=== PATIENT | male | born 1985 | race Two or more races ===

== ENCOUNTER 2024-01-31 10:37 | Outpatient (AMB) | payer OTHER, SELFPAY ==
--- NOTE | 2024-01-31 10:47 | MHC.PC.OV ---
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 Crane Service Technician Required: No Accompanied by: Spouse Allergies No Known Allergies [No Known Allergies*] Allergy (Verified 01/31/24 11:08) Medication List - Last Reconciled 01/31/24 by Bailey Singh MD buspirone 30 mg PO ONCE buspirone 10 mg PO DAILY dextroamphetamine-amphetamine 30 mg (Adderall) 30 mg PO DAILY escitalopram oxalate 10 mg PO DAILY 1 month loratadine 10 mg PO DAILY 1 month oxycodone 5 mg PO Q8H PRN 7 days sumatriptan succinate (Imitrex) take 1 tab at onset of headache; if no relief may repeat 1 tab after at least 2 hrs; max = 4 tabs/24 hr PO Ventolin HFA 90 mcg/actuation (albuterol sulfate) 2 puffs PO Q4-6H PRN NS Tobacco use date assessed: 01/31/24 Dental Screening Dental Screen Date: 01/31/24 Did you have a dental visit in the last 12 months?: Yes Did you have a dental problem in the last 6 months where you did not have access to dental care?: No Was dental information given to patient?: Patient has dentist HPI HPI Comments History of Present Illness Details 38 year old male with a past medical history of MDD, migraines, ADHD, asthma, hypertension, hyperlipidemia, kidney stones presenting to establish care. Transferring from Dr King : ADD, anxiety, MDD. Sees a therapist. Stable Recent ER visit at [facility] for left flank pain. Had had some hematuria as well. [place] better after dilaudid and discharged home. Continues to have intermittent sharp pains in the left flank. Denies gross hematuria. Denies fevers. No dysuria. Migraines-not responsive to OTC meds. Has used imitrex in the past with good relief Notes right hearing loss over the past couple years ROS see HPI PHYSICAL EXAM: GENERAL: Alert and oriented x 3. NAD EYES: EOMI. Anicteric. HENT: Moist mucous membranes. No scleral icterus. No cervical lymphadenopathy. LUNGS: Clear to auscultation bilaterally. CARDIOVASCULAR: Regular rate and rhythm. No murmur. No JVD. ABDOMEN: Soft, +left CVA tenderness otherwise no pain to palpation, +bs EXTREMITIES: No edema. Non-tender. SKIN: No rashes or lesions. Warm. NEUROLOGIC: No focal neurological deficits. CN II-XII grossly intact PSYCHIATRIC: Cooperative. Appropriate mood and affect [facility] Medical History (Updated 01/31/24 @ 11:38 by Bailey Singh MD) Asthma High cholesterol Depression Anxiety Imbalance Migraine Migraine aura, persistent ADHD Surgical History No pertinent past surgical history Family History Father Diabetes High cholesterol Mother Ovarian cancer Diabetes Brother Asthma High cholesterol Other In good health Social History Household Members: Significant Other Household Members Other:: 2 cats Housing: Apartment Alcohol intake: current Alcohol intake frequency: holidays/special occasions only Patient Tobacco Use Status: Current everyday Tobacco user Tobacco use type: Cigarette Cigarettes Per Day: 3 (interested in quitting ) e-Cigarette/Vaping Use: Never Used Substance Use Type: Marijuana service: No Current occupational status: employed 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 Cognitive needs: No Hearing needs: Yes (concern with right ear) Vision needs: No Questionnaire PHQ-9 Over the last 2 weeks, how often have you been bothered by any of the following problems? 1. Little interest or pleasure in doing things: several days 2. Feeling down, depressed, or hopeless: nearly every day 3. Trouble falling or staying asleep, or sleeping too much: nearly every day 4. Feeling tired or having little energy: nearly every day 5. Poor appetite or overeating: more than half the days 6. Feeling bad about yourself - or that you are a failure or have let yourself or your family down: nearly every day 7. Trouble concentrating on things, such as reading the newspaper or watching television: nearly every day 8. Moving or speaking so slowly that other people could have noticed. Or the opposite - being so fidgety or restless that you have been moving around a lot more than usual: more than half the days 9. Thoughts that you would be better off or of hurting yourself in some way: several days Total score: 21 Depression Screening Interpretation: Positive Depression Screening Follow-up: Existing condition, In treatment and Community Mental Health Worker F/U Depression Screening Done: Yes 82081 - PHQ-9 Billing: Yes Source: Developed by Drs. Rainer Brennan, Angela Oreilly, Imer Webber and colleagues, with an educational liliane from [employer]. Thrive Questionnaire Date Thrive assessed: 01/31/24 I am a: Patient What is your living situation today?: I have a steady place to live Within the past 12 months, did the food you bought not last and you didn't have the money to get more?: Sometimes True Within the past 12 months, did you worry whether your food would run out before you got money to buy more?: Sometimes True Do you have trouble paying for medicines?: No Do you have trouble getting transportation to medical appointments?: No Do you have trouble paying your heating and electricity bill?: Yes Do you have trouble taking care of your child, family member or friend?: No Do you have trouble with day-to-day activities such as bathing, preparing meals, shopping, managing finances, etc.?: Yes Are you currently unemployed and looking for a job?: No Are you interested in more education?: Yes Please select the resources that you would like help with: Utilities Currently or been in a relationship where the following occur: No concerns reported THRIVE Score: 3 AUDIT C Alcohol Use Questionnaire (AUDIT-C) 1. How often do you have a drink containing alcohol?: Never 3. How often do you have six or more drinks on one occasion?: Never Total Score: 0 DONAVON-7 AMB Questionnaire DONAVON-7 Date DONAVON - 7 assessed: 01/31/24 Feeling nervous, anxious, or on edge: 3 = Nearly every day Not being able to stop or control worryin = Nearly every day Worrying too much about different things: 3 = Nearly every day Trouble relaxin = Nearly every day Being so restless that it is hard to sit still: 3 = Nearly every day Becoming easily annoyed or irritable: 3 = Nearly every day Feeling afraid as if something awful might happen: 2 = More than half the days Total DONAVON-7 score (0-4 normal; 5-9 mild; 10-14 moderate; 15-21 severe): 20 Source: Developed by Drs. Rainer Brennan, Angela Oreilly, Imer Webber and colleagues, with an educational liliane from [employer]. DONAVON-7 Assessment Billing DONAVON-7 Assessment Tool: DONAVON-7 Assessment 29110 Physical exam (Primary Care) Vital Signs: Last Vital Signs Pulse 84 01/31/24 10:55 BP 132/66 01/31/24 10:55 Pulse Ox 99 01/31/24 10:55 Oxygen Delivery Method Room Air 01/31/24 10:55 BMI result Body Mass Index 44.2 Tobacco/Smoking Status: Tobacco use Status Patient Tobacco Use Status Current everyday Tobacco 01/31/24 11:10 Tobacco use type Cigarette 01/31/24 11:10 e-Cigarette/Vaping Use Never Used 01/31/24 11:10 Depression Screening Interpretation: Positive Depression Screening Follow-up: Existing condition, In treatment and Community Mental Health Worker F/U Currently or been in a relationship where the following occur: No concerns reported Assessment and Plan Assessment & Plan (1) History of kidney stones: Code(s): Z87.442 - Personal history of urinary calculi Plan: urology referral placed (2) Left flank pain: Code(s): R10.9 - Unspecified abdominal pain Plan: Renal u/s ordered oxycodone refilled (3) Depression: Code(s): F32.A - Depression, unspecified Qualifiers: Depression Type: major depressive disorder Major depression recurrence: recurrent Active/Remission status: in partial remission Qualified Code(s): F33.41 - Major depressive disorder, recurrent, in partial remission (4) Migraine: Code(s): G43.909 - Migraine, unspecified, not intractable, without status migrainosus Qualifiers: Migraine type: migraine (< 15 days per month) with aura Status migrainosus presence: without status migrainosus Intractability: not intractable Qualified Code(s): G43.109 - Migraine with aura, not intractable, without status migrainosus (5) Encounter to establish care: Code(s): Z76.89 - Persons encountering health services in other specified circumstances Plan: 38 y/o to establish care. Past medical, surgical, social and family history reviewed. chart updated. Orders: Orders US renal BI Today R10.9 - Unspecified abdominal pain, Z87.442 - Personal history of urinary calculi Complete Blood Count Auto Diff Today R10.9 - Unspecified abdominal pain, Z87.442 - Personal history of urinary calculi UA CC w/rflx Micro + Cult Today R10.9 - Unspecified abdominal pain Comprehensive Met. Panel Today R10.9 - Unspecified abdominal pain, Z87.442 - Personal history of urinary calculi Referrals Urology Referral R10.9 - Unspecified abdominal pain, Z87.442 - Personal history of urinary calculi Audiology Referral H91.90 - Unspecified hearing loss, unspecified ear Medications: New oxycodone Partial Fill upon patient request. 5 mg PO Q8H 7 days PRN 21 tabs 0RF pain sumatriptan succinate (Imitrex) take 1 tab at onset of headache; if no relief may repeat 1 tab after at least 2 hrs; max = 4 tabs/24 hr PO 30 tabs 0RF Coding Level of Care Code Est Pt Level 5 (89263) Diagnoses History of kidney stones Z87.442 Left flank pain R10.9 Recurrent major depressive disorder, in partial remission F33.41 Depression Type: major depressive disorder Major depression recurrence: recurrent Active/Remission status: in partial remission Migraine with aura and without status migrainosus, not intractable G43.109 Migraine type: migraine (< 15 days per month) with aura Status migrainosus presence: without status migrainosus Intractability: not intractable Encounter to establish care Z76.89 Additional Codes DONAVON-7 Assessment Billing - DONAVON-7 Assessment Tool: DONAVON-7 Assessment 70411 ([id number])
[2024-01-31 10:55] VITALS: BP 132/66; PULSE 84; O2SAT 99; BMI 44.2
== END 2024-01-31 11:30 | disposition home or self-care (01) ==
PROVIDERS: PCP Internal Medicine; Visit Provider Internal Medicine
DX: R10.9 Unspecified abdominal pain (principal); F33.41 Major depressive disorder, recurrent, in partial remission; G43.109 Migraine with aura, not intractable, without status migrainosus; Z87.442 Personal history of urinary calculi
CPT/HCPCS: 99214

== ENCOUNTER 2024-01-31 11:40 | Outpatient (REF) | payer OTHER, SELFPAY ==
[2024-01-31 14:28] LABS: MANUAL DIFF FLAG NO
[2024-01-31 14:37] LABS: Basophils Absolute Auto 0.1 X10*3/uL (0.0-0.2); Eosinophils Absolute Auto 0.6 X10*3/uL (0.0-0.4); Eosinophils Percent Auto 6.1 % (0-4); Hematocrit 43.3 % (42.0-52.0); Hemoglobin 14.8 g/dl (14.0-18.0); Imm Gran Abs Auto 0.05 X10*3/uL (0.00-0.03); Imm Gran Pct Auto 0.5 % (0.0-0.4); Lymphocytes Absolute Auto 3.2 X10*3/uL (1.2-4.9); Lymphocytes Percent Auto 32.4 % (20-40); Mean Corpuscular HGB Conc 34.2 g/dl (31.0-36.0); Mean Corpuscular Volume 84.9 fL (80.0-98.0); Mean Platelet Volume 10.5 fL (9.4-12.4); Monocytes Absolute Auto 0.8 X10*3/uL (0.1-1.2); Monocytes Percent Auto 7.8 % (2-11); Neutrophils Absolute Auto 5.1 x10*3/uL (2.0-8.3); Neutrophils Percent Auto 52.2 % (45-73); Platelet Count 303 X10*3/uL (160-400); Red Cell Distribution Width 12.7 % (11.0-16.0); White Blood Count 9.8 X10*3/uL (4.8-10.8)
[2024-01-31 14:40] LABS: Appearance Urine Clear; Color Urine Yellow; Glucose Urine UA Negative (Negative); Leukocyte Esterase Urine Negative (Negative); Nitrite Urine Negative (Negative); PH 5.5 (5.0-9.0); Urine Blood Negative (Negative); Urine Ketones Negative (Negative); Urine Protein Negative (Neg-Trace)
[2024-01-31 15:01] LABS: Alanine Aminotransferase 33 U/L (0-40); Albumin Level 4.1 g/dL (3.5-5.0); Alkaline Phosphatase 89 U/L (39-117); Anion Gap 11 (12-20); Aspartate Amino Transferase 20 U/L (5-37); Bilirubin Total 0.2 mg/dL (0.0-1.0); Blood Urea Nitrogen 10 mg/dL (9-16); Calcium 9.5 mg/dL (8.4-10.2); Carbon Dioxide 24 mmol/L (22-29); Chloride 109 mmol/L (96-108); Estimated Glomerular Filt Rate > 60; Glucose Random 101 mg/dL (60-115); Potassium 4.1 mmol/L (3.3-5.1); Sodium 140 mmol/L (135-145); Total Protein 7.3 g/dL (6.5-8.0)
== END 2024-01-31 11:41 | disposition home or self-care (01) ==
LOC: HO.WFDLDS 11:40
PROVIDERS: Visit Provider Internal Medicine
DX: R10.9 Unspecified abdominal pain (principal); Z87.442 Personal history of urinary calculi
CPT/HCPCS: 36415; 80053; 81003; 85025

== ENCOUNTER 2024-02-04 10:27 | Outpatient (REF) | payer OTHER, SELFPAY ==
--- NOTE | ~2024-02-04 | US_ITS ---
EXAMINATION: US RETROPERITONEAL LIMITED (RENAL ONLY) CLINICAL INFORMATION: Personal history of urinary calculi. COMPARISON: None available. TECHNIQUE: Ultrasound along with color Doppler imaging and spectral analysis was performed of the kidneys. FINDINGS: RIGHT KIDNEY: 13.1 x 4.7 x 6.2 cm (SAG x AP x TRV). The kidney is normal in size, contour, and echogenicity. Renal cortical thickness is normal. No calculi or focal parenchymal lesions. No hydronephrosis. LEFT KIDNEY: 11.2 x 5.5 x 6.0 cm (SAG x AP x TRV). The kidney is normal in size, contour, and echogenicity. Renal cortical thickness is normal. No calculi or focal parenchymal lesions. No hydronephrosis. US/US renal BI IMPRESSION: Unremarkable exam. Specifically, no evidence of nephrolithiasis.
== END 2024-02-04 10:28 | disposition home or self-care (01) ==
LOC: HO.US 10:27
PROVIDERS: PCP Internal Medicine; Visit Provider Internal Medicine
DX: R10.9 Unspecified abdominal pain (principal); Z87.442 Personal history of urinary calculi
CPT/HCPCS: 76775

== ENCOUNTER 2024-03-14 08:12 | Outpatient (AMB) | payer OTHER, SELFPAY ==
--- NOTE | 2024-03-14 08:21 | MHC.PC.OV ---
Vital Signs 03/14/24 08:22 Height 5 ft 10 in BMI Reason not done Patient refused/unable BP 148/84 H Blood Pressure Location Rt brachial Position Sitting Respiration 13 Pulse 78 Pulse Source Pulse Oximeter Pulse Oximetry (%) 99 Oxygen Delivery Method Room Air Intake Visit Reasons: physical exam Intake Note: Patient is here for a physical and has concern for left sided pain, described as sharp pain. Patient reports hes had an ultrasound of the kidneys. In Service Educator Required: No Accompanied by: Self / Same As Patient Allergies No Known Allergies [No Known Allergies*] Allergy (Verified 03/14/24 08:28) Tobacco use date assessed: 01/31/24 Dental Screening Dental Screen Date: 01/31/24 HPI HPI Comments History of Present Illness Details 38 year old male with a past medical history of MDD, migraines, ADHD, asthma, hypertension, hyperlipidemia, kidney stones presenting for physical exam BH: ADD, anxiety, MDD. Sees a therapist. Stable At ER at [facility] for left flank pain a few months ago. Had had some hematuria as well. [place] better after dilaudid and discharged home. Continues to have intermittent sharp pains in the left flank. Denies gross hematuria. Denies fevers. No dysuria. Left lower back pain for the past 2 months. 7-10/10 pain. Worsens with standing up straight, laying down, twisting in bed. Difficult to get dressed, difficult lifting, bending at work. Sometimes radiates in the left lower quadrant and left testicle. oxycodone helping but only for a few hours. Migraines-on prn imitrex Notes right hearing loss over the past couple years -was referred to audiology ROS see HPI PHYSICAL EXAM: GENERAL: Alert and oriented x 3. NAD EYES: EOMI. Anicteric. HENT: Moist mucous membranes. No scleral icterus. No cervical lymphadenopathy. LUNGS: Clear to auscultation bilaterally. CARDIOVASCULAR: Regular rate and rhythm. No murmur. No JVD. ABDOMEN: Soft, left thoracolumbar paraspinal spasm : normal penis and testicles, no masses or hernias appreciated EXTREMITIES: No edema. Non-tender. SKIN: No rashes or lesions. Warm. NEUROLOGIC: No focal neurological deficits. CN II-XII grossly intact PSYCHIATRIC: Cooperative. Appropriate mood and affect [facility] Medical History (Updated 03/14/24 @ 09:51 by Bailey Singh MD) Asthma High cholesterol Depression Anxiety Imbalance Migraine Migraine aura, persistent ADHD Surgical History No pertinent past surgical history Family History Father Diabetes High cholesterol Mother Ovarian cancer Diabetes Brother Asthma High cholesterol Other In good health Social History Household Members: Significant Other Household Members Other:: 2 cats Housing: Apartment Alcohol intake: current Alcohol intake frequency: holidays/special occasions only Patient Tobacco Use Status: Current everyday Tobacco user Tobacco use type: Cigarette Cigarettes Per Day: 3 (interested in quitting ) e-Cigarette/Vaping Use: Never Used Substance Use Type: Marijuana service: No Current occupational status: employed 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 Cognitive needs: No Hearing needs: Yes (concern with right ear) Vision needs: No Questionnaire Thrive Questionnaire Date Thrive assessed: 01/31/24 DONAVON-7 AMB Questionnaire DONAVON-7 Date DONAVON - 7 assessed: 01/31/24 Source: Developed by Drs. Rainer Brennan, Angela Oreilly, Imer Webber and colleagues, with an educational liliane from [employer]. Physical exam (Primary Care) Vital Signs: Last Vital Signs Pulse 78 03/14/24 08:22 Resp 13 03/14/24 08:22 BP 148/84 H 03/14/24 08:22 Pulse Ox 99 03/14/24 08:22 Oxygen Delivery Method Room Air 03/14/24 08:22 Tobacco/Smoking Status: Tobacco use Status Tobacco use date assessed 01/31/24 03/14/24 08:32 Patient Tobacco Use Status Current everyday Tobacco 03/14/24 08:32 Tobacco use type Cigarette 03/14/24 08:32 e-Cigarette/Vaping Use Never Used 03/14/24 08:32 Thrive Assessment: Date of Thrive Assessment Date Thrive assessed 01/31/24 03/14/24 08:32 Assessment and Plan Assessment & Plan (1) Physical exam: Code(s): Z00.00 - Encounter for general adult medical examination without abnormal findings Plan: Preventive measures discussed (2) Thoracic and lumbosacral neuritis: Code(s): M54.14 - Radiculopathy, thoracic region; M54.17 - Radiculopathy, lumbosacral region Plan: xray, pt, continue meds. MRI ordered (3) Thoracolumbar back pain: Code(s): M54.50 - Low back pain, unspecified; M54.6 - Pain in thoracic spine (4) Obesity due to excess calories: Code(s): E66.09 - Other obesity due to excess calories Orders: Orders XR lumbar spine 2-3V Today M54.14 - Radiculopathy, thoracic region, M54.17 - Radiculopathy, lumbosacral region, M54.50 - Low back pain, unspecified, M54.6 - Pain in thoracic spine XR thoracic spine 2V Today M54.14 - Radiculopathy, thoracic region, M54.17 - Radiculopathy, lumbosacral region, M54.50 - Low back pain, unspecified, M54.6 - Pain in thoracic spine PT Evaluation and Treatment Today M54.14 - Radiculopathy, thoracic region, M54.17 - Radiculopathy, lumbosacral region, M54.50 - Low back pain, unspecified, M54.6 - Pain in thoracic spine MR lumbar spine wo con Today M54.14 - Radiculopathy, thoracic region, M54.17 - Radiculopathy, lumbosacral region, M54.50 - Low back pain, unspecified, M54.6 - Pain in thoracic spine Medications: New semaglutide (weight loss) (Wegovy) administer weeks 1 through 4 of therapy 0.25 mg (0.5 mL) subcut QWEEK 2 mL 0RF Changed From oxycodone Partial Fill upon patient request. 5 mg PO Q8H 7 days PRN 21 tabs 0RF pain To oxycodone Partial Fill upon patient request. 5 mg PO Q8H 28 days PRN 84 tabs 0RF pain Coding Level of Care Code Est Pt Prev Care 18-39y(53069) Diagnoses Physical exam Z00.00 Thoracic and lumbosacral neuritis M54.14; M54.17 Thoracolumbar back pain M54.50; M54.6 Obesity due to excess calories E66.09
[2024-03-14 08:22] VITALS: BP 148/84; PULSE 78; RESP 13; O2SAT 99
== END 2024-03-14 09:14 | disposition home or self-care (01) ==
PROVIDERS: PCP Internal Medicine; Visit Provider Internal Medicine
DX: Z00.00 Encounter for general adult medical examination without abnormal findings (principal); M54.14 Radiculopathy, thoracic region; M54.17 Radiculopathy, lumbosacral region; M54.50 Low back pain, unspecified; M54.6 Pain in thoracic spine; E66.09 Other obesity due to excess calories
CPT/HCPCS: 99395

== ENCOUNTER 2024-03-24 08:49 | Outpatient (AMB) | payer OTHER, SELFPAY ==
--- NOTE | 2024-03-24 08:59 | A.OFFVIS_ITS ---
Intake Visit Reasons: history of kidney stones Intake Note: New Patient presents for initial visit for history of kidney stones Urology Medications: none Blood Thinner: none Teletype Clerk Required: No Accompanied by: Self / Same As Patient Allergies No Known Allergies [No Known Allergies*] Allergy (Verified 03/24/24 09:36) Medication List - Last Reconciled 03/24/24 by Marlin Diego, POST FORM REMOVER- bupropion HCl XL 150 mg PO QAM bupropion HCl XL 300 mg PO DAILY dextroamphetamine-amphetamine 30 mg (Adderall) 30 mg PO DAILY lorazepam 1 mg PO DAILY PRN oxycodone 5 mg PO Q8H PRN 28 days semaglutide (weight loss) (Wegovy) 0.25 mg (0.5 mL) subcut QWEEK sumatriptan succinate (Imitrex) take 1 tab at onset of headache; if no relief may repeat 1 tab after at least 2 hrs; max = 4 tabs/24 hr PO Ventolin HFA 90 mcg/actuation (albuterol sulfate) 2 puffs PO Q4-6H PRN NS HPI Comments Details: Zachery is a pleasant 39 year old male patient of Dr. Angel Whitley who was accompanied by his significant other at today's office visit. He has a past medical history of asthma, hypercholesteremia, depression, anxiety, migraines, and ADHD. He presents to the office today as a new patient for possible nephrolithiasis. In discussion with the patient today he reports having symptoms of nephrolithiasis such as left-sided flank pain with episode of hematuria that have since subsided. He reports having an episode 12 years ago and being told that he likely passed a stone as imaging noted ureter passed kidney stone. Recent renal imaging results reviewed with the patient today. Bilateral kidneys with no calculi, lesions, and or hydronephrosis. Unremarkable renal ultrasound. Patient reports pain he had been experiencing has since subsided however he continues with low-back pain. We discussed at length potential causes of nephrolithiasis. In office urinalysis results reviewed with the patient today. He denies urinary urgency, urinary frequency, incontinence, nocturia, hematuria, dysuria, foul smelling urine, changes to urinary stream, flank pain, fever, and or chills. He is happy with his current voiding parameters. [facility] Medical History Asthma High cholesterol Depression Anxiety Imbalance Migraine Migraine aura, persistent ADHD Surgical History No pertinent past surgical history Family History Father Diabetes High cholesterol Mother Ovarian cancer Diabetes Brother Asthma High cholesterol Other In good health Social History Household Members: Significant Other Household Members Other:: 2 cats Housing: Apartment Alcohol intake: current Alcohol intake frequency: holidays/special occasions only Patient Tobacco Use Status: Current everyday Tobacco user Tobacco use type: Cigarette Cigarettes Per Day: 3 (interested in quitting ) e-Cigarette/Vaping Use: Never Used Substance Use Type: Marijuana service: No Current occupational status: employed 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 Cognitive needs: No Hearing needs: Yes (concern with right ear) Vision needs: No Review of Systems Const All systems reviewed & are unremarkable except as noted in HPI and below Physical Exam Const General: cooperative, healthy appearing, comfortable, no acute distress, well developed, alert and awake Nutritional Appearance: overweight Orientation/consciousness: patient oriented x3 Limitations: no limitations HEENT Head: Yes normal to inspection, Yes normocephalic and Yes atraumatic Ears: hearing grossly normal bilaterally Eyes General: appearance normal, both eyes and all related structures Neck Neck: Yes normal visual inspection and Yes trachea midline Chest Chest palpation & inspection: normal inspection of the chest Resp Effort & Inspection: normal respiratory effort and able to speak in complete sentences Cardio Rate: regular rate GI Inspection: Yes normal to inspection General: Yes no CVA tenderness Back/Spine/Pelvis Back: no CVA tenderness Skin General skin exam: no rashes or lesions noted Neuro General: patient oriented x3 Extrem General: Yes normal to inspection Psych Appearance: grossly normal and well kempt Mental Status: mental status grossly normal Speech and movement: Normal speech and movement present and Clear speech present Affect: normal affect Attitude: cooperative Thought process: Normal thought process present Thought content: Normal thought content present Insight: Fair insight present (Psych) Judgement: Fair judgement present (Psych) Results AMB Urinalysis, Automated UA Leukoctes 0 Bree/uL Last Edit by John Bazan on 03/24/24 09:18 UA Nitrite Negative Last Edit by [employer] Des[employer]ison Bazan on 03/24/24 09:18 UA Urobilinogen 0.2 mg/dL Last Edit by [employer] Bazan on 03/24/24 09:18 UA Protein 15 mg/dL Last Edit by John Bazan on 03/24/24 09:18 UA pH 6.0 Last Edit by [employer] Bazan on 03/24/24 09:18 UA Blood 0 Sandip/uL Last Edit by A vida é feita de Descontoalison Bazan on 03/24/24 09:18 UA Specific [place] 1.025 Last Edit by [employer] on 03/24/24 09:18 UA Ketone Negative Last Edit by A vida [employer] feita [employer] Descontoalison Bazan on 03/24/24 09:18 UA Bilirubin 0 mg/dL Last Edit by [employer] Bazan on 03/24/24 09:18 UA Glucose 0 mg/dL Last Edit by [employer] fe[employer] Descon[employer]ison Bazan on 03/24/24 09:18 Results Reviewed Results Reviewed: Laboratory Last Values Urine pH (Auto) 6.0 03/24/24 09:01 Specific [place] (Auto) 1.025 03/24/24 09:01 Urine Protein (Auto) 15 mg/dL 03/24/24 09:01 Glucose (UA)(Auto) 0 mg/dL 03/24/24 09:01 Urine Ketones (Auto) Negative 03/24/24 09:01 Urine Blood (Auto) 0 Sandip/uL 03/24/24 09:01 Urine Nitrite (Auto) Negative 03/24/24 09:01 Urine Bilirubin (Auto) 0 mg/dL 03/24/24 09:01 Urine Urobilinogen (Auto) 0.2 mg/dL 03/24/24 09:01 Leukocyte Esterase (Auto) 0 Bree/uL 03/24/24 09:01 Date of Service: 02/04/24 EXAMINATION: US RETROPERITONEAL LIMITED (RENAL ONLY) FINDINGS: RIGHT KIDNEY: 13.1 x 4.7 x 6.2 cm (SAG x AP x TRV). The kidney is normal in size, contour, and echogenicity. Renal cortical thickness is normal. No calculi or focal parenchymal lesions. No hydronephrosis. LEFT KIDNEY: 11.2 x 5.5 x 6.0 cm (SAG x AP x TRV). The kidney is normal in size, contour, and echogenicity. Renal cortical thickness is normal. No calculi or focal parenchymal lesions. No hydronephrosis. IMPRESSION: Unremarkable exam. Specifically, no evidence of nephrolithiasis. Assessment & Plan Assessment & Plan (1) Left flank pain: Code(s): R10.9 - Unspecified abdominal pain Category: Medical (2) History of kidney stones: Code(s): Z87.442 - Personal history of urinary calculi Category: Medical (3) Hematuria: Code(s): R31.9 - Hematuria, unspecified Category: Medical Plan In office urinalysis results reviewed with the patient today; as noted above. Recent renal imaging results reviewed with the patient today; as noted above. Discussed at length potential causes of nephrolithiasis. Discussed, educated, and stressed the importance of adequate hydration relation to nephrolithiasis as well as overall health and well-being. Discussed adding 1 oz of lemon juice to water daily. Will obtain renal ultrasound in 3 months. Patient currently denies any bothersome urinary issues or concerns. He reports be happy with current voiding parameters. Follow-up in 3 months with imaging to be completed prior; or sooner with any issues, concerns, and or questions. Orders: Orders AMB Urinalysis Automated Today Z13.9 - Encounter for screening, unspecified US renal BI 3 Months N20.0 - Calculus of kidney Patient Instructions: The patient had an opportunity to ask questions regarding the treatment plan. All questions were answered. Physical exam, labs, and imaging were discussed and reviewed in detail. As well as risks, benefits, and discussion of treatment choices. No major barriers to understanding were identified. The patient expressed understanding and agreement with the above treatment plan. The patient was made aware they should contact our office by phone for worsening of their current condition, the appearance of new symptoms, or with any questions or concerns. Compliance is encouraged with any medications and follow up testing that is ordered. It is a privilege to be allowed the opportunity to participate in? your urological care.? Again, if you have any questions or concerns If you have any questions or concerns please do not hesitate to contact me. The office is [phone]. This note is constructed using voice recognition software. While every effort has been made to ensure accuracy communications intern errors may have been included. Yours sincerely, Marlin Diego, POST FORM REMOVER-BC Coding Level of Care Code New Pt Level 3 (28451) Diagnoses Left flank pain R10.9 History of kidney stones Z87.442 Hematuria R31.9
== END 2024-03-24 09:37 | disposition home or self-care (01) ==
PROVIDERS: PCP Internal Medicine; Visit Provider Nurse Practitioner Family
DX: R10.9 Unspecified abdominal pain (principal); Z87.442 Personal history of urinary calculi; R31.9 Hematuria, unspecified; Z13.9 Encounter for screening, unspecified
CPT/HCPCS: 99203

== ENCOUNTER → 2024-03-24 08:49 | Outpatient (BNVA) | payer OTHER, SELFPAY | PROVIDERS: PCP Internal Medicine; Visit Provider Nurse Practitioner Family | DX: R10.9 Unspecified abdominal pain (principal); M54.50 Low back pain, unspecified; Z87.442 Personal history of urinary calculi | CPT/HCPCS: 81003; 99202 ==

== ENCOUNTER 2024-03-27 07:58 | Outpatient (REF) | payer OTHER, SELFPAY | END 2024-03-27 07:59 | disposition home or self-care (01) | LOC: HO.SH 07:58 | PROVIDERS: Visit Provider Internal Medicine | DX: Z01.118 Encounter for examination of ears and hearing with other abnormal findings (principal); H93.293 Other abnormal auditory perceptions, bilateral | CPT/HCPCS: 92557; 92567 ==

== ENCOUNTER 2024-06-14 08:01 | Outpatient (REF) | payer OTHER, SELFPAY | END 2024-06-14 08:02 | disposition home or self-care (01) | LOC: HO.US 08:01 | PROVIDERS: PCP Internal Medicine; Visit Provider Nurse Practitioner Family | DX: N20.0 Calculus of kidney (principal) | CPT/HCPCS: 76775 ==

== ENCOUNTER → 2024-06-22 16:39 | Outpatient (BNVA) | payer OTHER, SELFPAY | PROVIDERS: PCP Internal Medicine; Visit Provider Nurse Practitioner Family | DX: N20.0 Calculus of kidney (principal) ==

== ENCOUNTER → 2024-06-22 16:39 | Outpatient (AMB) | payer OTHER, SELFPAY ==
--- NOTE | 2024-06-22 16:39 | A.OFFVIS_ITS ---
Intake Visit Reasons: 3m/US(set) Intake Note: Patient presents today for tele visit follow up on : kidney stones and ultrasound results Imaging Completed:06/14/24 Urology Medications: none Blood Thinner: none Power Brake Rebuilder Required: No Accompanied by: Self / Same As Patient Allergies No Known Allergies [No Known Allergies*] Allergy (Verified 06/22/24 21:30) Medication List - Last Reconciled 06/22/24 by RAFAEL Hernandez bupropion HCl XL 150 mg PO QAM bupropion HCl XL 300 mg PO DAILY dextroamphetamine-amphetamine 30 mg (Adderall) 30 mg PO DAILY lorazepam 1 mg PO DAILY PRN naloxone 4 mg/actuation (Narcan) 4 mg intranasal Q3M PRN oxycodone 5 mg PO Q8H PRN 28 days sumatriptan succinate (Imitrex) take 1 tab at onset of headache; if no relief may repeat 1 tab after at least 2 hrs; max = 4 tabs/24 hr PO Ventolin HFA 90 mcg/actuation (albuterol sulfate) 2 puffs PO Q4-6H PRN NS Wegovy (semaglutide (weight loss)) 0.25 mg (0.5 mL) subcut QWEEK 4 weeks NS Wegovy (semaglutide (weight loss)) 0.5 mg (0.5 mL) subcut QWEEK NS HPI Comments Details: Zachery is a pleasant 39 year old male patient of Dr. Angel Whitley. He has a past medical history of asthma, hypercholesteremia, depression, anxiety, migraines, and ADHD. He is being followed up on today via video telehealth for his history of nephrolithiasis. In discussion with the patient today he continues to report episodes of left-sided flank pain that radiates to his abdomen and left testicle. Recent unoffical renal imaging results reviewed with the patient today. Bilateral kidneys with no masses or hydronephrosis. Left kidney with lower pole 6 mm nonobstructing calculus. We discussed findings on renal ultr asound in correlation to patient's symptoms. We discussed stone burden in surveillance monitoring. However, patient continues to report bothersome left- sided flank pain therefore will obtain CT KUB for further assessment evaluation. He discusses his previous history of nephrolithiasis however never requiring surgical intervention. He otherwise denies any bothersome urinary issues. He denies urinary urgency, urinary frequency, incontinence, nocturia, hematuria, dysuria, foul smelling urine, changes to urinary stream, fever, and or chills. He is happy with his current voiding parameters. [facility] Medical History Asthma High cholesterol Depression Anxiety Imbalance Migraine Migraine aura, persistent ADHD Surgical History No pertinent past surgical history Family History Father Diabetes High cholesterol Mother Ovarian cancer Diabetes Brother Asthma High cholesterol Other In good health Social History Household Members: Significant Other Household Members Other:: 2 cats Housing: Apartment Alcohol intake: current Alcohol intake frequency: holidays/special occasions only Patient Tobacco Use Status: Current everyday Tobacco user Tobacco use type: Cigarette Cigarettes Per Day: 3 (interested in quitting ) e-Cigarette/Vaping Use: Never Used Substance Use Type: Marijuana service: No Current occupational status: employed 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 Cognitive needs: No Hearing needs: Yes (concern with right ear) Vision needs: No Review of Systems Const All systems reviewed & are unremarkable except as noted in HPI and below Physical Exam Const General: cooperative, healthy appearing, comfortable, no acute distress, well developed, alert and awake Orientation/consciousness: patient oriented x3 Resp Effort & Inspection: normal respiratory effort and able to speak in complete sentences Neuro General: patient oriented x3 Psych Appearance: grossly normal Mental Status: mental status grossly normal Speech and movement: Normal speech and movement present and Clear speech present Affect: normal affect Attitude: cooperative Thought process: Normal thought process present Thought content: Normal thought content present Insight: Fair insight present (Psych) Judgement: Fair judgement present (Psych) Telehealth Telehealth Telehealth Platform: [facility] Location of provider rendering services: practice address Location of patient: address on file Patient Identification confirmed using: Name, : Yes Telehealth method: video Patient verbally consented to treatment: Yes Patient verbally consented to billing insurance company: Yes Patient informed of any privacy concerns related to visit: Yes Minutes spent on Phone/Video with Pt.: 15 Assessment & Plan Assessment & Plan (1) Nephrolithiasis: Code(s): N20.0 - Calculus of kidney Category: Medical (2) Left flank pain: Code(s): R10.9 - Unspecified abdominal pain Category: Medical Plan Recent renal imaging results reviewed with the patient today; as noted above. We discussed further treatment options to include surveillance monitoring verses further workup. Discussed, educated, and stressed the importance of adequate hydration relation to nephrolithiasis as well as overall health and well-being. Continue adding 1 oz of lemon juice to water daily. Will obtain CT KUB for further assessment evaluation. Follow-up in 1 month with imaging to be completed prior; or sooner with any issues, concerns, and or questions. Orders: Orders CT kidney stone 06/22/24 N20.0 - Calculus of kidney Patient Instructions: The patient had an opportunity to ask questions regarding the treatment plan. All questions were answered. Physical exam, labs, and imaging were discussed and reviewed in detail. As well as risks, benefits, and discussion of treatment ch oices. No major barriers to understanding were identified. The patient expressed understanding and agreement with the above treatment plan. The patient was made aware they should contact our office by phone for worsening of their current condition, the appearance of new symptoms, or with any questions or concerns. Compliance is encouraged with any medications and follow up testing that is ordered. It is a privilege to be allowed the opportunity to participate in? your urological care.? Again, if you have any questions or concerns If you have any questions or concerns please do not hesitate to contact me. The office is [phone]. This note is constructed using voice recognition software. While every effort has been made to ensure accuracy paint crew supervisor errors may have been included. Yours sincerely, RAFAEL Hernandez Coding Level of Care Code Tele Est Pt Level 3 (83801) Diagnoses Nephrolithiasis N20.0 Left flank pain R10.9
== END ==
LOC: HO.HUSH 16:39
PROVIDERS: PCP Internal Medicine; Visit Provider Nurse Practitioner Family
DX: N20.0 Calculus of kidney (principal); R10.9 Unspecified abdominal pain
CPT/HCPCS: 99213

== ENCOUNTER 2025-01-15 14:53 | Outpatient (AMB) | payer OTHER, SELFPAY ==
--- NOTE | 2025-01-15 15:07 | A.OFFPC_ITS ---
Vital Signs 01/15/25 15:13 Height 5 ft 10 in Weight 298 lb 6 oz BMI 42.8 BP 120/70 Blood Pressure Location Rt brachial Position Sitting Respiration 16 Pulse 93 Pulse Source Pulse Oximeter Temp 98.8 F Temp Source Oral Pulse Oximetry (%) 98 Oxygen Delivery Method Room Air Intake Visit Reasons: Follow up zepbound Intake Note: Follow up medication Alterations Manager Required: No Allergies No Known Allergies (No Known Allergies*) Allergy (Verified 01/15/25 15:07) Tobacco use date assessed: 01/31/24 Dental Screening Dental Screen Date: 01/15/25 Did you have a dental visit in the last 12 months?: Yes Did you have a dental problem in the last 6 months where you did not have access to dental care?: No Was dental information given to patient?: Patient has dentist HPI HPI Comments History of Present Illness Details 38 year old male with a past medical his tory of MDD, migraines, ADHD, asthma, hypertension, hyperlipidemia, kidney stones presenting for physical exam BH: ADD, anxiety, MDD. Sees a therapist. Stable on current medications Obesity: Has lost 10 pounds on zepbound. Tolerates the medication. Continue diet and exercise as tolerated. Urology: kidney stones. following with [facility] [place]. At ER last year for left flank pain a few months ago. Had had some hematuria as well. [place] better after dilaudid and discharged home. Continues to have intermittent sharp pains in the left flank. Denies gross hematuria. Denies fevers. No dysuria. Left lower back pain for the past year. Radiates around to umbilicus, llq, upper thigh. History of low back pain.. 7-10/10 pain. Worsens with standing up straight, laying down, twisting in bed. Difficult to get dressed, difficult lifting, bending at work. continues oxycodone. Not controlled by otc medicatio ns. Xrays have been ordered. Migraines-on prn imitrex ROS see HPI PHYSICAL EXAM: GENERAL: Alert and oriented x 3. NAD EYES: EOMI. Anicteric. HENT: Moist mucous membranes. No scleral icterus. No cervical lymphadenopathy. LUNGS: Clear to auscultation bilaterally. CARDIOVASCULAR: Regular rate and rhythm. No murmur. No JVD. ABDOMEN: Soft, mild ttp left lower quadrant MSK: left thoracolumbar paraspinal spasm EXTREMITIES: No edema. Non-tender. SKIN: No rashes or lesions. Warm. NEUROLOGIC: No focal neurological deficits. CN II-XII grossly intact PSYCHIATRIC: Cooperative. Appropriate mood and affect [facility] Medical History Asthma High cholesterol Depression Anxiety Imbalance Migraine Migraine aura, persistent ADHD Surgical History No pertinent past surgical history Family History Father Diabetes High cholesterol Mother Ovarian cancer Diabetes Brother Asthma High cholesterol Other In good health Social History Household Members: Significant Other Household Members Other:: 2 cats Housing: Apartment Alcohol intake: current Alcohol intake frequency: holidays/special occasions only Patient Tobacco Use Status: Current everyday Tobacco user Tobacco use type: Cigarette Cigarettes Per Day: 3 (interested in quitting ) Years Smoked: 15 e-Cigarette/Vaping Use: Never Used Use of substances other than those prescribed or required for medical reasons: Yes Substance Use Type: Marijuana service: No Current occupational status: employed 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 Cognitive needs: No Hearing needs: Yes (concern with right ear) Vision needs: No Questionnaire PHQ-9 Over the last 2 weeks, how often have you been bothered by any of the following problems? 1. Little interest or pleasure in doing things: several days 2. Feeling down, depressed, or hopeless: not at all 3. Trouble falling or staying asleep, or sleeping too much: nearly every day 4. Feeling tired or having little energy: more than half the days 5. Poor appetite or overeating: several days 6. Feeling bad about yourself - or that you are a failure or have let yourself or your family down: more than half the days 7. Trouble concentrating on things, such as reading the newspaper or watching television: nearly every day 8. Moving or speaking so slowly that other people could have noticed. Or the opposite - being so fidgety or restless that you have been moving around a lot more than usual: not at all 9. Thoughts that you would be better off or of hurting yourself in some way: not at all Total score: 12 Depression Screening Interpretation: Positive Depression Screening Done: Yes 93178 - PHQ-9 Billing: Yes Source: Developed by Drs. Rainer Brennan, Angela Oreilly, Imer Webber and colleagues, with an educational liliane from [employer]. Thrive Questionnaire Date Thrive assessed: 01/15/25 I am a: Patient What is your living situation today?: I have a steady place to live Within the past 12 months, did the food you bought not last and you didn't have the money to get more?: Sometimes True Within the past 12 months, did you worry whether your food would run out before you got money to buy more?: Sometimes True Do you have trouble paying for medicines?: No Do you have trouble getting transportation to medical appointments?: No Do you have trouble paying your heating and electricity bill?: Yes Do you have trouble taking care of your child, family member or friend?: Yes Do you have trouble with day-to-day activities such as bathing, preparing meals, shopping, managing finances, etc.?: No Are you currently unemployed and looking for a job?: No Are you interested in more education?: No Please select the resources that you would like help with: Utilities Currently or been in a relationship where the following occur: No concerns reported THRIVE Score: 3 AUDIT C Alcohol Use Questionnaire (AUDIT-C) 1. How often do you have a drink containing alcohol?: Never 2. How many drinks containing alcohol do you have on a typical day when you are drinking?: 1 or 2 3. How often do you have six or more drinks on one occasion?: Never Total Score: 0 DONAVON-7 AMB Questionnaire DONAVON-7 Date DONAVON - 7 assessed: 01/15/25 Feeling nervous, anxious, or on edge: 3 = Nearly every day Not being able to stop or control worryin = More than half the days Worrying too much about different things: 2 = More than half the days Trouble relaxin = More than half the days Being so restless that it is hard to sit still: 1 = Several days Becoming easily annoyed or irritable: 3 = Nearly every day Feeling afraid as if something awful might happen: 1 = Several days Total DONAVON-7 score (0-4 normal; 5-9 mild; 10-14 moderate; 15-21 severe): 14 Source: Developed by Drs. Rainer Brennan, Angela Oreilly, Imer Webber and colleagues, with an educational liliane from [employer]. DONAVON-7 Assessment Billing DONAVON-7 Assessment Tool: DONAVON-7 Assessment 13878 Physical exam (Primary Care) Vital Signs: Last Vital Signs Temp 98.8 F 01/15/25 15:13 Pulse 93 01/15/25 15:13 Resp 16 01/15/25 15:13 BP 120/70 01/15/25 15:13 Pulse Ox 98 01/15/25 15:13 Oxygen Delivery Method Room Air 01/15/25 15:13 BMI result Body Mass Index 42.8 Tobacco/Smoking Status: Tobacco use Status Tobacco use date assessed 01/31/24 01/15/25 15:08 Patient Tobacco Use Status Current everyday Tobacco 01/15/25 15:08 Tobacco use type Cigarette 01/15/25 15:08 e-Cigarette/Vaping Use Never Used 01/15/25 15:08 PHQ-9: PHQ-9 Score PHQ-9: Total score 12 01/15/25 16:32 Depression Screening Interpretation: Positive Thrive Assessment: Date of Thrive Assessment Date Thrive assessed 01/15/25 01/15/25 16:32 Currently or been in a relationship where the following occur: No concerns reported Coding Level of Care Code Est Pt Level 4 (95695) Complex EM visit Add On G2211 Diagnoses Lumbar radicular pain M54.16 Nephrolithiasis N20.0 Class 3 severe obesity due to excess calories with serious comorbidity and body mass index (BMI) of 40.0 to 44.9 in adult E66.813; Z68.41 Obesity type: due to excess calories Obesity classification: adult class 3 (BMI >= 40) Serious obesity comorbidity presence: with serious comorbidity Body mass index: BMI 40.0-44.9 Additional Codes DONAVON-7 Assessment Billing - DONAVON-7 Assessment Tool: DONAVON-7 Assessment 28277 ([id number]) PHQ-9 - 35735 - PHQ-9 Billing: Yes ([id number]) Assessment & Plan Assessment & Plan (1) Lumbar radicular pain: Code(s): M54.16 - Radiculopathy, lumbar region Category: Medical (2) Nephrolithiasis: Code(s): N20.0 - Calculus of kidney Category: Medical (3) Obesity: Code(s): E66.9 - Obesity, unspecified Category: Medical Qualifiers: Obesity type: due to excess calories Obesity classification: adult class 3 (BMI >= 40) Serious obesity comorbidity presence: with serious comorbidity Body mass index: BMI 40.0-44.9 Qualified Code(s): E66.813 - Obesity, class 3; Z68.41 - Body mass index [BMI] 40.0-44.9, adult Plan 39 year old for follow up ADD, MDD stable on current medications Obesity-losing weight albeit slowly with zepbound. Would benefit from continued pharmacologic assistance. Labs ordred Abdominal pain-continue urology follow up. Definite element of Lumbar radiculop athy-get xrays completed. start PT. continue current medications Orders: Orders Hemoglobin A1c Today E66.9 - Obesity, unspecified, N20.0 - Calculus of kidney, R10.9 - Unspecified abdominal pain, Z13.0 - Encounter for screening for diseases of the blood and blood-forming organs and certain disorders involving the immune mechanism, Z13.228 - Encounter for screening for other metabolic disorders Complete Blood Count Auto Diff Today E66.9 - Obesity, unspecified, N20.0 - Calculus of kidney, R10.9 - Unspecified abdominal pain, Z13.0 - Encounter for screening for diseases of the blood and blood-forming organs and certain disorders involving the immune mechanism, Z13.228 - Encounter for screening for other metabolic disorders Comprehensive Met. Panel Today E66.9 - Obesity, unspecified, N20.0 - Calculus of kidney, R10.9 - Unspecified abdominal pain, Z13.0 - Encounter for screening for diseases of the blood and blood-forming organs and certain disorders involving the immune mechanism, Z13.228 - Encounter for screening for other met abolic disorders Lipid Panel Today E66.9 - Obesity, unspecified, N20.0 - Calculus of kidney, R10.9 - Unspecified abdominal pain, Z13.0 - Encounter for screening for diseases of the blood and blood-forming organs and certain disorders involving the immune mechanism, Z13.228 - Encounter for screening for other metabolic disorders TSH reflex Free T4 Today E66.9 - Obesity, unspecified, N20.0 - Calculus of kidney, R10.9 - Unspecified abdominal pain, Z13.0 - Encounter for screening for diseases of the blood and blood-forming organs and certain disorders involving the immune mechanism, Z13.228 - Encounter for screening for other metabolic disorders Medications: New Zepbound (tirzepatide (weight loss)) 7.5 mg (0.5 mL) subcut QWEEK 6 mL 3RF NS E66.9 - Obesity, unspecified, E78.5 - Hyperlipidemia, unspecified Refilled 2 oxycodone Partial Fill upon patient request. 5 mg PO Q8H PRN 84 tabs 0RF pain 28 days M54.14 - Radiculopathy, thoracic region, M54.17 - Radiculopathy, lumbosacral region Discontinued Zepbound (tirzepatide (weight loss)) Discontinued Reason: Doctor's Order 5 mg (0.5 mL) subcut QWEEK 2 mL 3RF NS E66.9 - Obesity, unspecified, M54.50 - Low back pain, unspecified, M54.6 - Pain in thoracic spine
[2025-01-15 15:13] VITALS: BP 120/70; PULSE 93; RESP 16; TEMP 37.1; O2SAT 98; BMI 42.8
== END 2025-01-15 15:44 | disposition home or self-care (01) ==
LOC: HO.HMCFM 14:54
PROVIDERS: PCP Internal Medicine; Visit Provider Internal Medicine
DX: M54.16 Radiculopathy, lumbar region (principal); N20.0 Calculus of kidney; E66.813 Obesity, class 3; Z68.41 Body mass index [BMI] 40.0-44.9, adult

== ENCOUNTER → 2025-01-15 14:53 | Outpatient (BNVA) | payer OTHER, SELFPAY | PROVIDERS: PCP Internal Medicine; Visit Provider Internal Medicine | DX: M54.16 Radiculopathy, lumbar region (principal); N20.0 Calculus of kidney; E66.813 Obesity, class 3; Z68.41 Body mass index [BMI] 40.0-44.9, adult; Z13.31 Encounter for screening for depression; Z13.30 Encounter for screening examination for mental health and behavioral disorders, unspecified; Z71.3 Dietary counseling and surveillance | CPT/HCPCS: 96127; 99212 ==